=== PATIENT | male | born 1975 | race African-American/Black ===

== ENCOUNTER 2019-08-05 20:04 | Emergency (ER) | payer BC ==
[~2019-08-05] VITALS: Ht 175.3 cm; Wt 68.0 kg
[2019-08-05] MEDS ORDERED: PREDNISONE20 MG PO (20:42)
[2019-08-05] MEDS ORDERED: AZITHROMYCIN500 MG PO (20:42)
[2019-08-05] MEDS ORDERED: TAMIFLU75 MG PO (20:42)
[2019-08-05] MEDS ORDERED: PROAIR HFA INH8.5 GM PO (20:42)
== END 2019-08-05 20:58 | disposition home or self-care (01) ==
LOC: FSED 20:04
DX: R50.9 Fever, unspecified (principal); R05 Cough; J11.1 Influenza due to unidentified influenza virus with other respiratory manifestations
CPT/HCPCS: 83518; 87400; 99283